=== PATIENT | female | born 1990 | race Caucasian/White ===

== ENCOUNTER 2018-02-13 02:33 | Emergency (ER) | payer OTHER ==
[~2018-02-13] VITALS: Ht 165.1 cm; Wt 65.0 kg
[2018-02-13 02:46] VITALS: BP 128/81; PULSE 58; RESP 16; TEMP 98.6; O2SAT 100
[2018-02-13 03:24] LABS: AUTOMATED NEUTROPHIL # 3.8 TH/MM3 (1.8-7.7); BASOPHIL # 0.1 TH/MM3 (0-0.2); BASOPHIL % 1.3 % (0.0-2.0); EOSINOPHIL # 0.3 TH/MM3 (0-0.4); EOSINOPHIL % 3.6 % (0.0-4.0); HEMATOCRIT 37.7 % (35.0-46.0); HEMOGLOBIN 13.6 GM/DL (11.6-15.3); LYMPH % 38.3 % (9.0-44.0); LYMPHOCYTE # 2.8 TH/MM3 (1.0-4.8); MEAN CELL VOLUME 84.6 FL (80.0-100.0); MEAN CORPUSCULAR HEMOGLOBIN 30.4 PG (27.0-34.0); MEAN PLATELET VOLUME 9.3 FL (7.0-11.0); MONOCYTE # 0.4 TH/MM3 (0-0.9); NEUT % 50.8 % (16.0-70.0); PLATELET COUNT 304 TH/MM3 (150-450); RED BLOOD COUNT 4.46 MIL/MM3 (4.00-5.30); WHITE BLOOD COUNT 7.4 TH/MM3 (4.0-11.0)
[2018-02-13 03:48] LABS: ALBUMIN 4.3 GM/DL (3.4-5.0); ALT (GPT) 27 U/L (10-53); AST (GOT) 19 U/L (15-37); BICARBONATE 28.2 MEQ/L (21.0-32.0); BLOOD UREA NITROGEN 10 MG/DL (7-18); CALCIUM 8.5 MG/DL (8.5-10.1); CHLORIDE 105 MEQ/L (98-107); CREATININE 0.85 MG/DL (0.50-1.00); GLOMERULAR FILTRATION RATE 81 ML/MIN (>89); GLUCOSE,RANDOM 83 MG/DL (74-106); SODIUM (NA) 142 MEQ/L (136-145)
[2018-02-13 03:58] LABS: ALKALINE PHOSPHATASE 51 U/L (45-117); TOTAL BILIRUBIN ADULT 0.2 MG/DL (0.2-1.0); TOTAL PROTEIN 8.4 GM/DL (6.4-8.2)
[2018-02-13 04:01] LABS: ACETAMINOPHEN LESS THAN 2.0 MCG/ML (10.0-30.0)
--- NOTE | 2018-02-13 05:08 | PD ---
HPI Chief Complaint: Psychiatric Symptoms Time Seen by Provider: 02:58 Travel History International Travel<30 days: No Contact w/Intl Traveler<30days: No Traveled to known affect area: No History of Present Illness HPI 27-year-old white female presents to emergency department under Raphael act by PD. Patient has a history of major depression. She states that she has been off her medications. She had been seen by a counselor at the [facility]. She was just seen yesterday for treatment of chlamydia. She reports being homeless. She has been staying at various coworkers homes. The patient states that she's been feeling increasingly depressed and having thoughts of self- harm. She's had a history of cutting in the past. She last performed cutting in October. She denies any toxic ingestions. She does admit to alcohol. No drugs. Currently on her menstrual cycle now. She is requesting to get back on her medication. PFSH Past Medical History Narrative Medical Major depression, STD Depression: Yes Diminished Hearing: No Immunizations Current: Yes Tetanus Vaccination: < 5 Years ?: Not Past Surgical History Surgical History: No Previous Surgery Social History Alcohol Use: No Tobacco Use: No Substance Use: No Allergies-Medications (Allergen,Severity, Reaction): Coded Allergies: No Known Allergies (Verified Allergy, Unknown, 02/13/18) Reported Meds & Prescriptions Reported Meds & Active Scripts Active No Active Prescriptions or Reported Medications Review of Systems General / Constitutional: No: Fever Eyes: No: Visual changes HENT: No: Headaches Cardiovascular: No: Chest Pain or Discomfort Respiratory: No: Shortness of Breath Gastrointestinal: No: Abdominal Pain Genitourinary: No: Dysuria Musculoskeletal: No: Pain Skin: No Rash Neurologic: No: Weakness Psychiatric: Positive: Depression, Suicidal Ideations, Mood Disorder, No: Anxiety, Disorder of Thought, Substance Abuse, Homicidal Ideation Endocrine: No: Polydipsia Hematologic/Lymphatic: No: Easy Bruising Physical Exam Narrative GENERAL: Well-nourished, well-developed patient. SKIN: Warm and dry. HEAD: Normocephalic and atraumatic. EYES: No scleral icterus. No injection or drainage. ENT: No nasal drainage noted. Mucous membranes pink. Airway patent. NECK: Supple, trachea midline. Moves head freely without obvious discomfort. CARDIOVASCULAR: Regular rate and rhythm without murmurs, gallops, or rubs. RESPIRATORY: Breath sounds equal bilaterally. No accessory muscle use. GASTROINTESTINAL: Abdomen soft, non-tender, nondistended. EXTREMITIES: No cyanosis or edema. BACK: Nontender without obvious deformity. No CVA tenderness. NEURO: Patient is alert and oriented. no sensorimotor deficits. Nonfocal. Normal speech. PSYCH: No delusions. No auditory or visual hallucinations. Data Data Last Documented VS Vital Signs Date Time Temp Pulse Resp B/P (MAP) Pulse Ox O2 Delivery O2 Flow Rate FiO2 02/13/18 02:46 98.6 58 16 128/81 (97) 100 Room Air Orders Orders Complete Blood Count With Diff (02/13/18 02:58) Comprehensive Metabolic Panel (02/13/18 02:58) Thyroid Stimulating Hormone (02/13/18 02:58) Psych Screen (02/13/18 02:58) Drug Screen, Random Urine (02/13/18 02:58) Alcohol (Ethanol) (02/13/18 02:58) Salicylates (Aspirin) (02/13/18 02:58) Tylenol (Acetaminophen) (02/13/18 02:58) Ed Urine Pregnancytest Poc (02/13/18 03:15) Diet Regular Basic (02/13/18 Breakfast) Labs Laboratory Tests Test 02/13/18 03:05 02/13/18 03:10 Urine Opiates Screen NEG Urine Barbiturates Screen NEG Urine Amphetamines Screen NEG Urine Benzodiazepines Screen NEG Urine Cocaine Screen NEG Urine Cannabinoids Screen NEG White Blood Count 7.4 TH/MM3 Red Blood Count 4.46 MIL/MM3 Hemoglobin 13.6 GM/DL Hematocrit 37.7 % Mean Corpuscular Volume 84.6 FL Mean Corpuscular Hemoglobin 30.4 PG Mean Corpuscular Hemoglobin Concent 36.0 % Red Cell Distribution Width 13.0 % Platelet Count 304 TH/MM3 Mean Platelet Volume 9.3 FL Neutrophils (%) (Auto) 50.8 % Lymphocytes (%) (Auto) 38.3 % Monocytes (%) (Auto) 6.0 % Eosinophils (%) (Auto) 3.6 % Basophils (%) (Auto) 1.3 % Neutrophils # (Auto) 3.8 TH/MM3 Lymphocytes # (Auto) 2.8 TH/MM3 Monocytes # (Auto) 0.4 TH/MM3 Eosinophils # (Auto) 0.3 TH/MM3 Basophils # (Auto) 0.1 TH/MM3 CBC Comment AUTO DIFF Blood Urea Nitrogen 10 MG/DL Creatinine 0.85 MG/DL Random Glucose 83 MG/DL Total Protein 8.4 GM/DL Albumin 4.3 GM/DL Calcium Level 8.5 MG/DL Alkaline Phosphatase 51 U/L Aspartate Amino Transf (AST/SGOT) 19 U/L Alanine Aminotransferase (ALT/SGPT) 27 U/L Total Bilirubin 0.2 MG/DL Sodium Level 142 MEQ/L Potassium Level 3.5 MEQ/L Chloride Level 105 MEQ/L Carbon Dioxide Level 28.2 MEQ/L Anion Gap 9 MEQ/L Estimat Glomerular Filtration Rate 81 ML/MIN Thyroid Stimulating Hormone 3rd Gen 3.800 uIU/ML Salicylates Level LESS THAN 1.7 MG/DL Acetaminophen Level LESS THAN 2.0 MCG/ML Ethyl Alcohol Level 129 MG/DL MDM Medical Decision Making Medical Screen Exam Complete: Yes Emergency Medical Condition: Yes Medical Record Reviewed: Yes Interpretation(s) Laboratory Tests Test 02/13/18 03:05 02/13/18 03:10 Urine Opiates Screen NEG Urine Barbiturates Screen NEG Urine Amphetamines Screen NEG Urine Benzodiazepines Screen NEG Urine Cocaine Screen NEG Urine Cannabinoids Screen NEG White Blood Count 7.4 TH/MM3 Red Blood Count 4.46 MIL/MM3 Hemoglobin 13.6 GM/DL Hematocrit 37.7 % Mean Corpuscular Volume 84.6 FL Mean Corpuscular Hemoglobin 30.4 PG Mean Corpuscular Hemoglobin Concent 36.0 % Red Cell Distribution Width 13.0 % Platelet Count 304 TH/MM3 Mean Platelet Volume 9.3 FL Neutrophils (%) (Auto) 50.8 % Lymphocytes (%) (Auto) 38.3 % Monocytes (%) (Auto) 6.0 % Eosinophils (%) (Auto) 3.6 % Basophils (%) (Auto) 1.3 % Neutrophils # (Auto) 3.8 TH/MM3 Lymphocytes # (Auto) 2.8 TH/MM3 Monocytes # (Auto) 0.4 TH/MM3 Eosinophils # (Auto) 0.3 TH/MM3 Basophils # (Auto) 0.1 TH/MM3 CBC Comment AUTO DIFF Blood Urea Nitrogen 10 MG/DL Creatinine 0.85 MG/DL Random Glucose 83 MG/DL Total Protein 8.4 GM/DL Albumin 4.3 GM/DL Calcium Level 8.5 MG/DL Alkaline Phosphatase 51 U/L Aspartate Amino Transf (AST/SGOT) 19 U/L Alanine Aminotransferase (ALT/SGPT) 27 U/L Total Bilirubin 0.2 MG/DL Sodium Level 142 MEQ/L Potassium Level 3.5 MEQ/L Chloride Level 105 MEQ/L Carbon Dioxide Level 28.2 MEQ/L Anion Gap 9 MEQ/L Estimat Glomerular Filtration Rate 81 ML/MIN Thyroid Stimulating Hormone 3rd Gen 3.800 uIU/ML Salicylates Level LESS THAN 1.7 MG/DL Acetaminophen Level LESS THAN 2.0 MCG/ML Ethyl Alcohol Level 129 MG/DL Differential Diagnosis MDM: High Differential diagnoses: Schizophrenia, schizoaffective disorder, bipolar, anxiety, depression, adjustment reaction, mood disorder NOS, ODD, depressive disorder NOS, dementia, dementia with agitation, psychosis NOS, substance induced mood disorder, DMDD, Asperger syndrome, infection,electrolyte abnormality, malingering. Narrative Course Mental health screening discussed with the patient. Psychiatric screen ordered. The patient is been medically cleared. This is medical clearance for psychiatric admission, depression Diagnosis Primary Impression: Medical clearance for psychiatric admission Additional Impression: depression Scripts No Active Prescriptions or Reported Meds Condition: Kian Barahona Feb 13, 2018 05:08
[2018-02-13 06:16] VITALS: BP 116/58; PULSE 61; RESP 18; TEMP 98.2; O2SAT 100
[2018-02-13 10:18] VITALS: BP 112/65; PULSE 84; RESP 16; O2SAT 99
--- NOTE | 2018-02-13 14:19 | PD ---
History of Present Illness Chief Complaint: Psychiatric Symptoms Time Seen by Provider: 13:45 Travel History International Travel<30 Days: No Contact w/Intl Traveler<30days: No Known affected area: No Legal Status Legal Status: Raphael Act Raphael Act Signed By: Melani Braun History of Present Illness: History of Present Illness HPI 27-year-old, single, employed, white female, resides with a roommate, with self- reported history of depression, presenting to emergency department under Raphael act by PD after the patient called them to have herself "[place] acted". She had gone out drinking with her roommate and that they had begun to argue. When they got home they continued to argue and she decided to call the police. She tells me that she had been researching for several months how to go about getting herself placed under the Raphael act. The Raphael act report alleges that the patient informed them she was previously taking medication but has not taken them in 3-4 months and that she had thoughts of harming self. The patient did not make any attempt at harming herself. She reports a previous history of "experimenting" with self injurious behavior by cutting but has not engaged in that behavior in several months. EMR is reviewed no previous contact with [facility] psychiatry. BAL on arrival was 129. Patient is seen in J pod. Nurse reports no behavioral concerns and no suicidality. She is eating her lunch. She is alert, oriented, dressed in hospital gown with fair hygiene. Decreased eye contact. Speech is clear, goal- directed, normal rate and tone. There is no evidence of any marcos or hypomania. No psychosis. Mood is mildly depressed. She tells me that she went out drinking last night and was involved in an argument with her roommate. After they got back to his apartment she started to feel like an intruder and had the urge to punish herself and then called the police. She does state that she experiences urges to punish herself when she perceives that she is not light or she is perceives being rejected by others. There is no evidence of any paranoia and no delusional content. She denies any suicidal or homicidal ideation, intent or plan. Remainder of psychiatric review of systems is negative. In terms of previous treatment she states she saw a therapist at [facility] and had been receiving medication there which included Paxil and BuSpar. She hasn't taken that medication in approximately 3-4 months because she moved and failed to follow-up. PFSH Past Medical History Depression: Yes Diminished Hearing: No Immunizations Current: Yes Tetanus Vaccination: < 5 Years ?: Not Past Surgical History Surgical History: No Previous Surgery Psychiatric History Psychiatric History Hx Psychiatric Treatment: Patient states she was prescribed Paxil and buspirone by Dr. Poe at [facility] in [place]. She states she was diagnosed with major depression and received therapy while there. Reported experimentation with self-injurious behavior by cutting. Not engage in that behavior currently. No previous suicide attempt History of Inpatient Treatment: No Guns or firearms in home: No Social History Single female. 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 Had been living with a friend. Has 2 brothers in the area. Hx Alcohol Use: Yes Hx Tobacco Use: No Hx Substance Use: No Other Substances Used: social drinker Hx of Substance Use Treatment: No Family Psychiatric History Negative Allergies-Medications (Allergen,Severity, Reaction): Coded Allergies: No Known Allergies (Verified Allergy, Unknown, 02/13/18) Reported Meds & Prescriptions Reported Meds & Active Scripts Active No Active Prescriptions or Reported Medications Review of Systems Psychiatric: COMPLAINS OF: Depression Except as stated in HPI: all other systems reviewed are Neg Mental Status Examination Appearance: Appropriate Consciousness: Alert Orientation: x4 Motor Activity: Normal gait Speech: Unremarkable Language: Adequate Fund of Knowledge: Adequate Attention and Concentration: Adequate Memory: Unremarkable Mood: Appropriate, Sad Affect: Appropriate Thought Process & Associations: Intact, Logical, Goal directed Thought Content: Appropriate Hallucination Type: None Delusion Type: None Suicidal Ideation: No Suicidal Plan: No Suicidal Intention: No Homicidal Ideation: No Homicidal Plan: No Homicidal Intention: No Insight: Fair Judgment: Impulsive MDM Medical Decision Making Medical Record Reviewed: Yes Assessment/Plan 27-year-old, single, employed, white female, resides with a roommate, with self- reported history of depression, presenting to emergency department under Raphael act by PD after the patient called them to have herself "Raphael acted". She had gone out drinking with her roommate and that they had begun to argue. When they got home they continued to argue and she decided to call the police for thoughts of wanting to engage in self harming behavior due to feeling rejected by her roommate.. The patient did not make any attempt at harming herself. She was drinking alcohol at the time and this may have contributed to her feelings. She reports a previous history of "experimenting" with self injurious behavior by cutting but has not engaged in that behavior in several months. The patient was monitored in secure environment and presented no behavioral dysregulation and no suicidality or self harming behavior. She does not meet criteria for Raphael act. There is no evidence of unstable mental illness as defined under the Raphael act. Patient's current symptomatology can be addressed on outpatient basis. She is recommended to initiate counseling once again as well as to secure outpatient psychiatric follow-up for medication. The Raphael act is lifted. Psychiatrically stable for discharge from the ED. . Orders Orders Complete Blood Count With Diff (02/13/18 02:58) Comprehensive Metabolic Panel (02/13/18 02:58) Thyroid Stimulating Hormone (02/13/18 02:58) Psych Screen (02/13/18 02:58) Drug Screen, Random Urine (02/13/18 02:58) Alcohol (Ethanol) (02/13/18 02:58) Salicylates (Aspirin) (02/13/18 02:58) Tylenol (Acetaminophen) (02/13/18 02:58) Ed Urine Pregnancytest Poc (02/13/18 03:15) Diet Regular Basic (02/13/18 Breakfast) Diet Regular Basic (02/13/18 Lunch) Ed Discharge Order (02/13/18 13:56) Results Vital Signs Date Time Temp Pulse Resp B/P (MAP) Pulse Ox O2 Delivery O2 Flow Rate FiO2 02/13/18 10:18 84 16 112/65 (81) 99 Room Air 02/13/18 06:16 98.2 61 18 116/58 (77) 100 Room Air 02/13/18 02:46 98.6 58 16 128/81 (97) 100 Room Air Laboratory Tests Test 02/13/18 03:05 02/13/18 03:10 Urine Opiates Screen NEG Urine Barbiturates Screen NEG Urine Amphetamines Screen NEG Urine Benzodiazepines Screen NEG Urine Cocaine Screen NEG Urine Cannabinoids Screen NEG White Blood Count 7.4 Red Blood Count 4.46 Hemoglobin 13.6 Hematocrit 37.7 Mean Corpuscular Volume 84.6 Mean Corpuscular Hemoglobin 30.4 Mean Corpuscular Hemoglobin Concent 36.0 Red Cell Distribution Width 13.0 Platelet Count 304 Mean Platelet Volume 9.3 Neutrophils (%) (Auto) 50.8 Lymphocytes (%) (Auto) 38.3 Monocytes (%) (Auto) 6.0 Eosinophils (%) (Auto) 3.6 Basophils (%) (Auto) 1.3 Neutrophils # (Auto) 3.8 Lymphocytes # (Auto) 2.8 Monocytes # (Auto) 0.4 Eosinophils # (Auto) 0.3 Basophils # (Auto) 0.1 CBC Comment AUTO DIFF Differential Comment AUTO DIFF CONFIRMED Blood Urea Nitrogen 10 Creatinine 0.85 Random Glucose 83 Total Protein 8.4 Albumin 4.3 Calcium Level 8.5 Alkaline Phosphatase 51 Aspartate Amino Transf (AST/SGOT) 19 Alanine Aminotransferase (ALT/SGPT) 27 Total Bilirubin 0.2 Sodium Level 142 Potassium Level 3.5 Chloride Level 105 Carbon Dioxide Level 28.2 Anion Gap 9 Estimat Glomerular Filtration Rate 81 Thyroid Stimulating Hormone 3rd Gen 3.800 Salicylates Level LESS THAN 1.7 Acetaminophen Level LESS THAN 2.0 Ethyl Alcohol Level 129 Diagnosis Primary Impression: Depressive disorder Psychiatrically Cleared: Yes Med/ Other Pt Specific Info: No Meds Exist/No RX given Prescriptions No Active Prescriptions or Reported Meds Disposition: 01 DISCHARGE HOME Condition: Stable Shannon Wang JAMES Feb 13, 2018 14:19
== END 2018-02-13 14:20 | disposition home or self-care (01) ==
LOC: NEPJ 02:33
DX: F32.9 Major depressive disorder, single episode, unspecified (principal); A74.9 Chlamydial infection, unspecified; Z59.0 Homelessness
CPT/HCPCS: 80053; 80307; 84443; 84703; 85025; 99283